=== PATIENT | female | born 1980 | race Caucasian/White ===

== ENCOUNTER 2024-08-15 17:43 | Emergency (ER) | payer OTHER, SELFPAY ==
[2024-08-15 17:46] VITALS: BP 142/106
--- NOTE | 2024-08-15 18:05 | ED.GENMED ---
History of Present Illness
General
Chief Complaint: Blood Pressure Problem
Source: patient
Exam Limitations: none
Time Seen by Provider: 08/15/24 18:04
Nursing documentation reviewed up to this point in time: agreed with
History of Present Illness
History of Present Illness:
Patient is a 44-year-old female who presents to the ER for evaluation. Patient reports she has had high blood pressure for the past 6 months but does not have a doctor and only wants a functional medicine specialist. She does not want to take
medicine. She works as ' an aide ,' and used her clients blood pressure machine and her blood pressure was elevated in the 180s. In addition she complains of months of intermittent chest heaviness and shortness of breath. She does smoke.
She is not on control. Patient reports she has not had her period in 2 years.
She denies any headache or blurred vision.
Review of Systems
Review of Systems
Allergies reviewed?: Yes
All Other Systems: ROS reviewed and negative except as documented in HPI and ROS
Constitutional: Reports no symptoms
Respiratory: Reports trouble breathing
Cardiac: Reports chest pain
ABD/GI: Reports no symptoms
: Reports no symptoms
Musculoskeletal: Reports no symptoms
Skin: Reports no symptoms
Neurological: Reports no symptoms; Denies headache
Psychiatric: Reports no symptoms
Phy Exam
General Physical Exam
General Presentation: no apparent distress
General age: appears stated age
General Skin: warm and dry
General Habitus: normal
General Mental: alert
General Hydration: appears well hydrated
Cardiovascular Exam
Cardiovascular Exam: regular rate/rhythm, no murmur and normal peripheral pulses
Pulmonary Exam
Pulmonary Exam: lungs clear and no respiratory distress
Neurological Exam
Neurological Exam: alert and oriented x3
Musculoskeletal Exam
Musculoskeletal Exam: full ROM
Skin Exam
Skin Exam: normal color and warm/dry
Psychiatric Exam
Psychiatric Exam: normal mood/affect and other
Course
Orders/Labs/Results
Orders:
Orders
08/15/24 17:50
Electrocardiogram (*1) Urgent
Reason for Study: Chest Pain
Cardiac Monitoring- Treatment ONCE
EKG- Treatment ONCE
IV Insert/Care/Rem.- Treatment PRN
O2 Therapy [RESP] Urgent
Titrate/Wean O2 to maintain O2 sat greater than (%): 90
Special Instructions: Maintain sats >/=90%
Pulse Ox/spot Check [RESP] Urgent
Quantity: 1
Special Instructions: ON ROOM AIR
08/15/24 18:43
Complete Blood Count/With Diff Urgent
Comprehensive Metabolic Panel Urgent
DDimer [D-Dimer] Urgent
Troponin I Urgent
08/15/24 19:12
Chest [CR Chest - 2 Views ] Urgent
Comment:
Reason For Exam: cp
Abnormal Lab Results
08/15/24
18:43
MCH 32.4 H pg
(27.0-31.0)
MPV 10.6 H fL
(7.4-10.4)
Chloride 111 H mmol/L
(98-107)
Glucose 114 H mg/dl
(70-99)
Alkaline Phosphatase 36 L U/L
(38-126)
08/15/24 18:43
08/15/24 18:43
Vital Signs
Initial and Last Documented VS:
Initial Vital Signs
Temp Pulse Resp BP Pulse Ox
97.9 F 80 20 142/106 100
08/15/24 17:46 08/15/24 17:46 08/15/24 17:46 08/15/24 17:46 08/15/24 17:46
Last Documented Vital Signs
Temp Pulse Resp BP Pulse Ox
97.9 F 80 20 142/106 100
08/15/24 17:46 08/15/24 17:46 08/15/24 17:46 08/15/24 17:46 08/15/24 18:12
Human Resources Partner consulted with Physician
Human Resources Partner consulted with physician?: Yes
Name of Physician Consulted: Yobany
MDM/Problems Addressed
Differential Diagnosis Includes:
not limited to elevated blood pressure, less likely ACS less likely PE
MDM/Problems Addressed:
Patient presents awake alert no acute distress reports she has had high blood pressure for 6 months and also complains of chest heaviness and shortness of breath. She is a smoker not on control no DVT PE risk factors. No complaints of
headache or blurred vision. she is in no acute distress here in the ER. She wants a functional medicine specialist and does not want to take blood pressure medication. She currently does not have a family doctor. Her labs are unremarkable
including normal cardiac troponin normal D-dimer no acute findings on chest x-ray or EKG. Case discussed with Dr. Haywood will DC with outpatient follow-up.
Patient's discharge blood pressure was 144/93
Patient does request also outpatient cardiology follow-up for intermittent chest pain over the past several months will refer to cardiology as well
*Pulse Oximetry
Patient hypoxic: no
*EKG
Interpreted by ED Provider?: Yes
Heart Rate: 77
Rate: normal
Rhythm: sinus
Ischemia: no ischemia
*Critical Care Note
Total Time (30-74mins, 75-104mins- exclusive of procedures): Not Applicable
ED Attending Note
-
Portions of this chart may have been created with voice recognition software.� Occasional wrong word or��sound alike� substitutions may have occurred due to the inherent limitations of voice recognition software.
Discharge Plan
Departure
Patient Disposition: Home (Routine Discharge)
Date of Disposition: 08/15/24
Time of Disposition: 19:41
Patient with high blood pressure during this ER visit?: Yes
Condition: Fair
Covid-19: Not Applicable
Discharge Problem:
elevated blood pressure, Chest pain
Instructions: High Blood Pressure (DC), Chest pain - Discharge instructions, BLOOD PRESSURE
Referrals:
[facility] [Outside]
Bear Bledsoe MD [Active, Cardiology]
UNKNOWN - PT DOES,NOT KNOW [Family Provider]
Activity Restrictions/Additional Instructions:
As discussed please follow-up with [facility] for reevaluation and blood pressure recheck. In addition you were given cardiology information please call to make an appointment. Return if any worsening of symptoms. Limit
salt intake and stop smoking.
Interventions
Interventions:
*Risk Screen - Suicide Last Done: 08/15/24 17:46
*General Assessment Last Done: 08/15/24 18:17
*Neglect/Abuse Screening Last Done: 08/15/24 17:46
*ED- Fall Risk Assessment Last Done: 08/15/24 18:17
*ED COVID-19 Vaccine History Last Done: 08/15/24 18:17
ED- Cardiac Assessment Last Done: 08/15/24 18:46
ED- Neurological Assessment Last Done: 08/15/24 18:46
ED- Pulmonary Assessment Last Done: 08/15/24 18:46
Discharge Date and Time
Print Language: PORTUGUESE
[2024-08-15 18:55] LABS: % Basophils 0.8 % (0-2); % Eosinophils 2.8 % (0-6); % Immature Granulocytes 0.2 % (0-0.5); % Lymphocytes 32.4 % (20.5-51.1); % Monocytes 8.3 % (1.7-9.3); % Neutrophils 55.5 % (42.2-75.2); Absolute Eosinophils 0.1 10^3/uL (0-0.7); Absolute Lymphocytes 1.7 10^3/uL (1.2-3.4); Absolute Monocytes 0.4 10^3/uL (0.1-0.6); Absolute Neutrophils 2.8 10^3/uL (1.4-6.5); Hematocrit 40.4 % (37.0-47.0); Hemoglobin 14.3 g/dL (12.0-16.0); Mean Corp Hgb Conc. 35.4 g/dL (33.0-37.0); Mean Corpuscular Hgb 32.4 pg (27.0-31.0); Mean Corpuscular Volume 91.4 fL (81.0-99.0); Mean Platelet Volume 10.6 fL (7.4-10.4); Nucleated Red Blood Cells % 0 %; Platelet Count 159 10^3/uL (130-400); Red Blood Cell Count 4.42 10^6/uL (4.20-5.40); Red Cell Dist. Width 11.8 % (11.5-14.5); White Blood Cell Count 5.1 10^3/uL (4.8-10.8)
[2024-08-15 19:08] LABS: D-Dimer < 0.27 ug/mlFEU (0.00-0.50)
[2024-08-15 19:15] LABS: ALT (SGPT) 17 U/L (0-35); AST (SGOT) 22 U/L (14-36); Albumin 4.8 g/dl (3.5-5.0); Alkaline Phosphatase 36 U/L (38-126); Blood Urea Nitrogen 16 mg/dl (7-17); Calcium 9.4 mg/dl (8.4-10.2); Carbon Dioxide 23 mmol/L (22-30); Chloride 111 mmol/L (98-107); Glucose 114 mg/dl (70-99); Potassium 3.9 mmol/L (3.5-5.1); Sodium 141 mmol/L (135-145); Total Bilirubin 0.5 mg/dl (0.2-1.3); Total Protein 7.4 g/dl (6.3-8.2); eGFR > 60.00
[2024-08-15 19:27] LABS: Troponin I < 0.012 ng/ml
[2024-08-15 19:45] VITALS: BP 144/93
== END 2024-08-15 20:12 | disposition home or self-care (01) ==
LOC: EMR 17:43
PROVIDERS: Emergency Medicine; Nurse Practitioner; EMERGENCY PHYSICIAN Emergency Medicine
DX: R07.89 Other chest pain (principal); R06.02 Shortness of breath; R03.0 Elevated blood-pressure reading, without diagnosis of hypertension; R20.2 Paresthesia of skin; F17.200 Nicotine dependence, unspecified, uncomplicated
CPT/HCPCS: 99285; 94760; 71046; 80053; 84484; 85025; 85379; 93005